=== PATIENT | male | born 1945 | race Caucasian/White ===

== ENCOUNTER 2017-03-10 20:35 | Emergency (ER) | payer MEDICARE, OTHER ==
[~2017-03-10] VITALS: Ht 170.2 cm; Wt 79.0 kg
[~2017-03-10 20:35] MED LIST: AMLO5TAB2 PO; ASPI-515 PO; LISI-170 PO; METF500T4 PO; METO50TA82 PO; PANT40TA3 PO; ROSU5TAB PO
[2017-03-10 20:43] VITALS: BP 118/77
== END 2017-03-10 21:46 | disposition home or self-care (01) ==
LOC: ED 21:34
DX: J20.9 Acute bronchitis, unspecified (principal); I10 Essential (primary) hypertension; E11.9 Type 2 diabetes mellitus without complications; Z87.891 Personal history of nicotine dependence; Z88.8 Allergy status to other drugs, medicaments and biological substances
CPT/HCPCS: 71020; 99284

== ENCOUNTER 2019-10-27 08:25 | Outpatient (CLI) | payer MEDICARE, OTHER ==
[~2019-10-27 08:25] MED LIST changes: +AMLO-150 PO; -AMLO5TAB2 PO; +METF500T17 PO; -METF500T4 PO
[2019-10-27] MEDS ORDERED: LOSA50TA14 PO (08:57)
[2019-10-27] MEDS ORDERED: famotidine PO (08:57)
[2019-10-27] MEDS ORDERED: diltiazem PO (08:57)
[2019-10-27 10:02] LABS: ALANINE AMINOTRANSFERASE 18 U/L (12-78); ALBUMIN 3.6 g/dL (3.4-5.0); ANION GAP 6 mmol/L (5-15); CALCIUM 8.7 mg/dL (8.5-10.1); CHLORIDE 106 mmol/L (98-107); CREATININE 1.26 mg/dL (0.7-1.3)
[2019-10-27 10:14] LABS: ALKALINE PHOSPHATASE 60 U/L (45-117); BILIRUBIN,TOTAL 0.3 mg/dL (0.2-1.0); TOTAL PROTEIN 7.5 g/dL (6.4-8.2)
[2019-10-27 10:21] LABS: MICROSCOPIC NOT IND
== END 2019-10-27 23:59 | disposition home or self-care (01) ==
LOC: STAR 08:25
PROVIDERS: ATTEND Urology
DX: Z01.818 Encounter for other preprocedural examination (principal); N20.0 Calculus of kidney
CPT/HCPCS: 36415; 80053; 81003; 87077; 87086; 87186; 93005

== ENCOUNTER 2019-11-04 13:25 | Day surgery (SDC) | payer MEDICARE, OTHER ==
[~2019-11-04] VITALS: Ht 167.6 cm; Wt 79.9 kg
[~2019-11-04 13:25] MED LIST changes: +LOSA50TA14 PO; +diltiazem PO; +famotidine PO
[2019-11-04 13:51] VITALS: BP 147/83
[2019-11-04] MEDS ORDERED: LACTATED RINGERS 1,000 ML IV SCH (13:54)
[2019-11-04] MEDS ORDERED: FENTANYL PF 100 MCG/2ML ONE (16:12)
[2019-11-04] MEDS ORDERED: MIDAZOLAM 1 MG/ML, 2ML ONE (16:13)
[2019-11-04] MEDS ORDERED: LIDOCAINE PF 2%, 5ML ONE (16:39)
[2019-11-04] MEDS ORDERED: PHENYLEPHRINE 10 MG/ML ONE ×2 (16:39)
[2019-11-04] MEDS ORDERED: GLYCOPYRROLATE 0.2MG/1ML, 5ML ONE (16:39)
[2019-11-04] MEDS ORDERED: PROPOFOL 10 MG/ML, 20ML ONE (16:39)
[2019-11-04] MEDS ORDERED: CEFAZOLIN 1,000 MG ONE (16:39)
[2019-11-04] MEDS ORDERED: ROCURONIUM 10 MG/ML,10ML ONE (16:39)
== END 2019-11-04 19:40 | disposition home or self-care (01) ==
LOC: OR 13:25 → 4NE 18:50 → OR 19:40
PROVIDERS: ATTEND Urology
DX: N20.0 Calculus of kidney (principal); I25.10 Atherosclerotic heart disease of native coronary artery without angina pectoris; I10 Essential (primary) hypertension; E78.5 Hyperlipidemia, unspecified; E11.9 Type 2 diabetes mellitus without complications; Z79.899 Other long term (current) drug therapy; Z88.8 Allergy status to other drugs, medicaments and biological substances; Z79.84 Long term (current) use of oral hypoglycemic drugs
CPT/HCPCS: 50590; 82962; J0690; J2250; J2370; J2704; J3010; J7120; G0378